=== PATIENT | male | born 1940 | race Caucasian/White ===

== ENCOUNTER 2016-11-18 19:05 | Inpatient (IN) | payer MEDICARE, OTHER ==
[~2016-11-18 19:05] MED LIST: ADULT LOW DOSE81 M1 PO; ATENOLOL50 MG; COREG6.25 MG PO; GLUCOPHAGE500 MG PO; LOTREL 10/20 MG1 CAP; LOTREL 5/20 MG1 CAP PO; MULTIVITAMIN1 CAP; NIASPAN500 M1 PO; STOOL SOFTENER100 MG; ZOCOR20 MG PO; ZOLOFT50 M1 PO
[2016-11-18] MEDS ORDERED: SIMPONI SC (19:26)
[2016-11-18] MEDS ORDERED: GLIMEPIRIDE4 M1 PO (19:26)
[2016-11-18] MEDS ORDERED: AMBIEN10 M1 PO (19:27)
[2016-11-18] MEDS ORDERED: LIPITOR10 M1 PO (19:28)
[2016-11-18] MEDS ORDERED: PROTONIX40 M2 PO (19:28)
[2016-11-18] MEDS ORDERED: MELATONIN3 M4 PO (19:28)
[2016-11-18] MEDS ORDERED: PREDNISONE10 M1 PO (19:29)
[2016-11-18 20:26] LABS: URINE APPEARANCE HAZY; URINE BILIRUBIN MODERATE (NEG); URINE BLOOD NEGATIVE (NEG); URINE COLOR DARK YELLOW; URINE GLUCOSE (UA) MODERATE (NEG); URINE KETONE MODERATE (NEG); URINE LEUKOCYTE ESTERASE POSITIVE (NEG); URINE NITRITE NEGATIVE (NEG); URINE PROTEIN MODERATE (NEG); URINE SPECIFIC GRAVITY 1.025 (1.003-1.030)
[2016-11-18 20:26] LABS: BASO % 0.1 % (0-2); HCT-HEMATOCRIT 38.6 % (36.0-53.5); HGB-HEMOGLOBIN 13.4 gm/dl (13.5-17.0); IMMATURE GRANULOCYTES PERCENT 0.5 % (0-0.3); LYMPH % 7.4 % (20-45); LYMPH ABSOLUTE COUNT 1.4 tho/cmm (0.8-4.5); MCH (MEAN CORPUSCULAR HGB) 27.4 pg (28.0-32.0); MCHC MEAN CORPUSCULAR HGB CONC 34.7 % (32.0-36.0); MCV (MEAN CELL VOLUME) 78.9 fl (82.0-96.0); MEAN PLATELET VOLUME 9.4 cmc (9.4-12.4); MONO % 6.1 % (0-12); MONOCYTE ABSOLUTE COUNT 1.1 tho/cmm (0.0-1.2); NEUTROPHIL ABSOLUTE COUNT 15.7 tho/cmm (1.6-8.0); NEUTROPHIL-AUTOMATED 15.7 tho/cmm (1.6-8.0); NEUTROPHILS % 85.9 % (40-80); PLATELET COUNT 223 tho/cmm (150-450); RED BLOOD COUNT 4.89 mil/cmm (4.40-5.70); RED CELL DISTRIBUTION WIDTH 13.8 % (12.4-16.4); WHITE BLOOD COUNT 18.3 tho/cmm (4.0-10.0)
[2016-11-18 20:37] LABS: URINE EPITHELIAL CELLS 0-1 /[HPF] (0-10); URINE MUCUS 3+
[2016-11-18 20:40] LABS: ALB/GLOB RATIO 0.6 (0.8-2.0); ALBUMIN 2.3 g/dl (3.5-5.0); ALKALINE PHOSPHATASE 87 U/L (33-138); ALT/SGPT 17 U/L (12-78); ANION GAP 20 mmol/L (0-20); AST/SGOT 11 U/L (10-40); BILIRUBIN,TOTAL 0.4 mg/dl (0.0-1.5); BLOOD UREA NITROGEN 23 mg/dl (6-24); CALCIUM 8.2 mg/dl (8.5-10.5); CARBON DIOXIDE-VENOUS 19 mmol/L (22-32); CHLORIDE 101 mmol/l (96-110); CREATININE 1.08 mg/dl (0.60-1.30); GLUCOSE 308 mg/dL (70-110); POTASSIUM 4.6 mmol/L (3.7-5.1); SODIUM 135 mmol/L (135-145); eGFR VALUE FOR BLACK 77 mL/Min
[2016-11-19 05:51] LABS: BASO % 0.2 % (0-2); EOS % 0.2 % (0-7); HCT-HEMATOCRIT 41.9 % (36.0-53.5); HGB-HEMOGLOBIN 14.1 gm/dl (13.5-17.0); IMMATURE GRANULOCYTES ABSOLUTE 0.12 tho/cmm (0-0.03); IMMATURE GRANULOCYTES PERCENT 0.7 % (0-0.3); LYMPH % 10.7 % (20-45); LYMPH ABSOLUTE COUNT 1.9 tho/cmm (0.8-4.5); MCH (MEAN CORPUSCULAR HGB) 26.7 pg (28.0-32.0); MCHC MEAN CORPUSCULAR HGB CONC 33.7 % (32.0-36.0); MCV (MEAN CELL VOLUME) 79.4 fl (82.0-96.0); MEAN PLATELET VOLUME 9.5 cmc (9.4-12.4); MONO % 8.1 % (0-12); MONOCYTE ABSOLUTE COUNT 1.4 tho/cmm (0.0-1.2); NEUTROPHIL ABSOLUTE COUNT 14.2 tho/cmm (1.6-8.0); NEUTROPHIL-AUTOMATED 14.2 tho/cmm (1.6-8.0); NEUTROPHILS % 80.1 % (40-80); PLATELET COUNT 241 tho/cmm (150-450); RED BLOOD COUNT 5.28 mil/cmm (4.40-5.70); RED CELL DISTRIBUTION WIDTH 13.8 % (12.4-16.4); WHITE BLOOD COUNT 17.7 tho/cmm (4.0-10.0)
[2016-11-19 05:53] LABS: ANION GAP 15 mmol/L (0-20); BLOOD UREA NITROGEN 16 mg/dl (6-24); CALCIUM 8.7 mg/dl (8.5-10.5); CARBON DIOXIDE-VENOUS 24 mmol/L (22-32); CHLORIDE 106 mmol/l (96-110); CREATININE 1.05 mg/dl (0.60-1.30); SODIUM 141 mmol/L (135-145); eGFR VALUE FOR BLACK 80 mL/Min
[2016-11-19 05:55] LABS: GLUCOSE 104 mg/dL (70-110)
--- NOTE | 2016-11-19 21:24 | NUR ---
VN ROUNDING-NOT ABLE TO COMPLETE THE [employer] COMPUTER SHOWS IT IS OFFLINE. UNABLE TO PLACE CALL
[2016-11-20 06:31] LABS: BASO % 0.1 % (0-2); EOS % 0.1 % (0-7); HCT-HEMATOCRIT 36.1 % (36.0-53.5); HGB-HEMOGLOBIN 12.2 gm/dl (13.5-17.0); IMMATURE GRANULOCYTES ABSOLUTE 0.06 tho/cmm (0-0.03); IMMATURE GRANULOCYTES PERCENT 0.4 % (0-0.3); LYMPH % 8.4 % (20-45); LYMPH ABSOLUTE COUNT 1.2 tho/cmm (0.8-4.5); MCH (MEAN CORPUSCULAR HGB) 26.7 pg (28.0-32.0); MCHC MEAN CORPUSCULAR HGB CONC 33.8 % (32.0-36.0); MEAN PLATELET VOLUME 9.4 cmc (9.4-12.4); MONO % 7.2 % (0-12); NEUTROPHILS % 83.8 % (40-80); PLATELET COUNT 205 tho/cmm (150-450); RED BLOOD COUNT 4.57 mil/cmm (4.40-5.70); WHITE BLOOD COUNT 14.4 tho/cmm (4.0-10.0)
--- NOTE | 2016-11-20 16:19 | NUR ---
VIRTUAL CARE NOTE: PT RESTING ON BED, STATES DOING VERY WELL TODAY. IV IS BEEPING AND PT WANTS SOME ICE AT THIS TIME, VN PAGED TO FLOOR STAFF TO ASSIST. PT DENIES FURTHER NEEDS, AWAITING FOR SURGEON TO ROUND YET.
--- NOTE | 2016-11-20 20:05 | NUR ---
TO THE O.R. VIA STAFF AND CART
[2016-11-21 06:15] LABS: BASO % 0.1 % (0-2); HCT-HEMATOCRIT 36.7 % (36.0-53.5); HGB-HEMOGLOBIN 12.2 gm/dl (13.5-17.0); IMMATURE GRANULOCYTES ABSOLUTE 0.11 tho/cmm (0-0.03); IMMATURE GRANULOCYTES PERCENT 0.5 % (0-0.3); LYMPH % 6.2 % (20-45); LYMPH ABSOLUTE COUNT 1.3 tho/cmm (0.8-4.5); MCH (MEAN CORPUSCULAR HGB) 26.3 pg (28.0-32.0); MCHC MEAN CORPUSCULAR HGB CONC 33.2 % (32.0-36.0); MCV (MEAN CELL VOLUME) 79.3 fl (82.0-96.0); MEAN PLATELET VOLUME 9.4 cmc (9.4-12.4); MONO % 6.8 % (0-12); MONOCYTE ABSOLUTE COUNT 1.5 tho/cmm (0.0-1.2); NEUTROPHIL ABSOLUTE COUNT 18.8 tho/cmm (1.6-8.0); NEUTROPHIL-AUTOMATED 18.8 tho/cmm (1.6-8.0); NEUTROPHILS % 86.4 % (40-80); PLATELET COUNT 202 tho/cmm (150-450); RED BLOOD COUNT 4.63 mil/cmm (4.40-5.70); RED CELL DISTRIBUTION WIDTH 13.9 % (12.4-16.4)
[2016-11-21 06:19] LABS: WHITE BLOOD COUNT 21.7 tho/cmm (4.0-10.0)
[2016-11-21 06:25] LABS: ANION GAP 14 mmol/L (0-20); BLOOD UREA NITROGEN 4 mg/dl (6-24); CALCIUM 7.7 mg/dl (8.5-10.5); CARBON DIOXIDE-VENOUS 22 mmol/L (22-32); CHLORIDE 105 mmol/l (96-110); CREATININE 0.84 mg/dl (0.60-1.30); GLUCOSE 171 mg/dL (70-110); POTASSIUM 3.9 mmol/L (3.7-5.1); SODIUM 137 mmol/L (135-145); eGFR VALUE FOR BLACK >90 mL/Min
--- NOTE | 2016-11-21 21:49 | NUR ---
VIRTUAL CARE NOTE: ASSESSMENT DEFERRED. PT. SLEEPING.
[2016-11-22 05:22] LABS: BASO % 0.1 % (0-2); EOS % 0.1 % (0-7); HCT-HEMATOCRIT 34.9 % (36.0-53.5); HGB-HEMOGLOBIN 11.6 gm/dl (13.5-17.0); IMMATURE GRANULOCYTES ABSOLUTE 0.09 tho/cmm (0-0.03); IMMATURE GRANULOCYTES PERCENT 0.6 % (0-0.3); LYMPH % 5.1 % (20-45); LYMPH ABSOLUTE COUNT 0.8 tho/cmm (0.8-4.5); MCH (MEAN CORPUSCULAR HGB) 26.2 pg (28.0-32.0); MCHC MEAN CORPUSCULAR HGB CONC 33.2 % (32.0-36.0); MEAN PLATELET VOLUME 9.1 cmc (9.4-12.4); MONO % 4.8 % (0-12); MONOCYTE ABSOLUTE COUNT 0.8 tho/cmm (0.0-1.2); NEUTROPHIL ABSOLUTE COUNT 14.3 tho/cmm (1.6-8.0); NEUTROPHIL-AUTOMATED 14.3 tho/cmm (1.6-8.0); NEUTROPHILS % 89.3 % (40-80); PLATELET COUNT 206 tho/cmm (150-450); RED BLOOD COUNT 4.42 mil/cmm (4.40-5.70); RED CELL DISTRIBUTION WIDTH 13.8 % (12.4-16.4)
--- NOTE | 2016-11-22 17:46 | NUR ---
VN ROUNDING-NOT ABLE TO ROUND [facility] NOT WORKING IN THIS ROOM. CHART WAS REVIEWED.
[2016-11-24] MEDS ORDERED: STOP THE FOLLOWING (09:46)
[2016-11-24] MEDS ORDERED: AUGMENTIN 875-1 EAC2 PO (09:47)
[2016-12-13] MEDS ORDERED: AMBIEN10 M1 PO (11:11)
[2016-12-13] MEDS ORDERED: AMARYL4 M1 PO (11:11)
[2016-12-13] MEDS ORDERED: PREDNISONE10 M1 PO (11:12)
[2016-12-13] MEDS ORDERED: LEVEMIR100 UNITS/ SC (11:13)
[2016-12-13] MEDS ORDERED: PROBIOTIC1 EA10 PO (11:13)
[2016-12-25] MEDS ORDERED: GUMMI BEAR MUL1 EAC1 PO (10:47)
[2016-12-25] MEDS ORDERED: VITAMIN B-125000 MC2 SL (10:49)
[2016-12-28] MEDS ORDERED: TUMS200 MG PO (08:54)
[2016-12-28] MEDS ORDERED: ACIDOPHILUS LA1 EAC1 PO (08:54)
[2016-12-28] MEDS ORDERED: AUGMENTIN 875-1 EAC2 PO (08:55)
[2016-12-28] MEDS ORDERED: PERCOCET 5-3251 EACH PO (08:56)
[2016-12-28] MEDS ORDERED: LEVAQUIN750 M1 PO (10:56)
[2016-12-28] MEDS ORDERED: PROTONIX40 M2 PO (12:13)
== END 2016-11-24 12:05 | DRG 603 ==
LOC: EDMED 19:05 → EMR2 21:35 → 5WD 23:47 → PACU 11-20 21:13 → 5WD 11-20 22:34
PROVIDERS: Colon & Rectal Surgery; Emergency Medicine; Internal Medicine; ADMIT Hospitalist
PROC: 0J9C30Z Drainage of Pelvic Region Subcutaneous Tissue and Fascia with Drainage Device, Percutaneous Approach (ICD-10-PCS; principal; 2016-11-20)
DX: L02.214 Cutaneous abscess of groin (principal); D69.6 Thrombocytopenia, unspecified; I25.10 Atherosclerotic heart disease of native coronary artery without angina pectoris; K51.90 Ulcerative colitis, unspecified, without complications; E11.9 Type 2 diabetes mellitus without complications; I10 Essential (primary) hypertension; L03.314 Cellulitis of groin; N49.2 Inflammatory disorders of scrotum; E78.5 Hyperlipidemia, unspecified; F32.9 Major depressive disorder, single episode, unspecified; Z95.1 Presence of aortocoronary bypass graft
CPT/HCPCS: C1751; J1650; J1815; J2175; J2543; J3370; J7030; J7050; J7512; Q9967

== ENCOUNTER 2016-12-14 07:47 | Inpatient (IN) | payer MEDICARE, OTHER ==
[~2016-12-14 07:47] MED LIST changes: +AMARYL4 M1 PO; +AMBIEN10 M1 PO; +AUGMENTIN 875-1 EAC2 PO; +GLIMEPIRIDE4 M1 PO; +LEVEMIR100 UNITS/ SC; +LIPITOR10 M1 PO; +MELATONIN3 M4 PO; +PREDNISONE10 M1 PO; +PROBIOTIC1 EA10 PO; +PROTONIX40 M2 PO; +SIMPONI SC; +STOP THE FOLLOWING
[2016-12-14 09:34] LABS: ANION GAP 15 mmol/L (0-20); BLOOD UREA NITROGEN 10 mg/dl (6-24); CALCIUM 8.9 mg/dl (8.5-10.5); CARBON DIOXIDE-VENOUS 22 mmol/L (22-32); CHLORIDE 107 mmol/l (96-110); GLUCOSE 95 mg/dL (70-110); POTASSIUM 4.1 mmol/L (3.7-5.1); SODIUM 140 mmol/L (135-145); eGFR VALUE FOR BLACK 84 mL/Min
--- NOTE | 2016-12-14 16:37 | NUR ---
0650-VIRTUAL NURSE NOTE-PATIENT SETTLED INTO ROOM POST OP. INTRODUCED MYSELF TO PATIENT AND FAMILY AND INSTRUCTED THEM HOW TO CONTACT US. Michelle AKBAR RN
[2016-12-15 07:24] LABS: BASO % 0.2 % (0-2); EOS % 0.2 % (0-7); HCT-HEMATOCRIT 32.6 % (36.0-53.5); HGB-HEMOGLOBIN 10.5 gm/dl (13.5-17.0); LYMPH % 14.8 % (20-45); LYMPH ABSOLUTE COUNT 1.4 tho/cmm (0.8-4.5); MCH (MEAN CORPUSCULAR HGB) 25.5 pg (28.0-32.0); MCHC MEAN CORPUSCULAR HGB CONC 32.2 % (32.0-36.0); MCV (MEAN CELL VOLUME) 79.1 fl (82.0-96.0); MEAN PLATELET VOLUME 9.6 cmc (9.4-12.4); MONO % 8.8 % (0-12); MONOCYTE ABSOLUTE COUNT 0.8 tho/cmm (0.0-1.2); NEUTROPHIL ABSOLUTE COUNT 7.2 tho/cmm (1.6-8.0); NEUTROPHIL-AUTOMATED 7.2 tho/cmm (1.6-8.0); PLATELET COUNT 203 tho/cmm (150-450); RED BLOOD COUNT 4.12 mil/cmm (4.40-5.70); RED CELL DISTRIBUTION WIDTH 14.9 % (12.4-16.4); WHITE BLOOD COUNT 9.4 tho/cmm (4.0-10.0)
[2016-12-15 07:36] LABS: ANION GAP 10 mmol/L (0-20); BLOOD UREA NITROGEN 14 mg/dl (6-24); CALCIUM 8.1 mg/dl (8.5-10.5); CARBON DIOXIDE-VENOUS 24 mmol/L (22-32); CHLORIDE 108 mmol/l (96-110); CREATININE 1.08 mg/dl (0.60-1.30); MAGNESIUM 1.9 mg/dl (1.8-2.6); POTASSIUM 4.3 mmol/L (3.7-5.1); SODIUM 138 mmol/L (135-145); eGFR VALUE FOR BLACK 77 mL/Min
[2016-12-15 07:45] LABS: GLUCOSE 167 mg/dL (70-110)
--- NOTE | 2016-12-15 19:57 | NUR ---
VIRTUAL CARE NOTE: PT. IS DOING FAIR WITH PAIN. EXPLAINS HE FEELS HIS DRAIN MAY HAVE GOTTEN PULLED WITH PRIOR X-RAY. STATES HE WANTS TO TRY SOME TYLENOL OR SOMETHING. EXPLANATION GIVEN THAT WE DIDN'T HAVE TYLENOL ORDERED ANYMORE BUT WE DID HAVE A ORAL NARCOTIC/TYLENOL MIX WE COULD TRY JUST ONE TAB TO SEE IF THAT WOULD HELP. EDUCATION PROVIDED IT MAY LESSEN THE LIQUID STOOLS HE IS HAVING ALSO WHICH HE HAS FROM THE FULL LIQUID DIET HE IS TAKING. STATES THE OSTOMY NURSE WORKED WITH HIM AND HIS ON OSTOMY CARE TODAY. STATES HE WATCHED BUT WASN'T QUITE READY TO DO THINGS YET. PRAISE GIVEN THAT HE WAS OBSERVING CARES THAT IT WOULD BE A LEARNING PROCESS WITH TIME TO ADJUST TO THE COLOSTOMY. ALSO HAS WALKED X1 TODAY. ENCOURAGED TO AMBULATE MORE THROUGHOUT THE DAY TO HELP KEEP BOWELS FUNCTIONING AND HELP WITH HEALING AND PAIN ALSO. AIDE PAGED TO ASSIST WITH WALKING WITH ABLE. INSTRUCTED PT. TO CALL FOR FUTURE NEEDS. STATES VERBAL AGREEMENT.
--- NOTE | 2016-12-16 09:42 | NUR ---
VIRTUAL CARE NOTE: PT RESTING ON BED, AT BEDSIDE. PT STATES HE'S DOING PRETTY GOOD TODAY, DIET ADVANCED TO SOFT THIS AM-TOLERAES WELL. PLAN OF CARE DISCUSSED WITH PT AND , ENCOURAGE PT AND ENGAGE ON OSTOMY LEARNING, CONTINUE WITH AMBULATION AND USING THE I.S., ALL [facility] ANSWERED TO PATIENT AND . PT WANTS TO GO FOR A WALK, [facility] PT DENIES FURTHER NEEDS OR CONCERNS.
[2016-12-17 05:23] LABS: HGB-HEMOGLOBIN 10.5 gm/dl (13.5-17.0); PLATELET COUNT 175 tho/cmm (150-450)
[2016-12-18] MEDS ORDERED: NORCO 5-325 TA1 EACH PO (13:13)
[2016-12-18] MEDS ORDERED: IBUPROFEN200 M2 PO (13:15)
[2016-12-18] MEDS ORDERED: HOLD THE FOLLOWING: (13:19)
[2016-12-25] MEDS ORDERED: GUMMI BEAR MUL1 EAC1 PO (10:47)
[2016-12-25] MEDS ORDERED: VITAMIN B-125000 MC2 SL (10:49)
[2016-12-28] MEDS ORDERED: ACIDOPHILUS LA1 EAC1 PO (08:54)
[2016-12-28] MEDS ORDERED: TUMS200 MG PO (08:54)
[2016-12-28] MEDS ORDERED: AUGMENTIN 875-1 EAC2 PO (08:55)
[2016-12-28] MEDS ORDERED: PERCOCET 5-3251 EACH PO (08:56)
[2016-12-28] MEDS ORDERED: LEVAQUIN750 M1 PO (10:56)
[2016-12-28] MEDS ORDERED: PROTONIX40 M2 PO (12:13)
== END 2016-12-18 16:27 | DRG 331 ==
LOC: SHSA 07:47 → ORW 10:37 → PACU 15:29 → 5WD 16:29
PROVIDERS: Anesthesiology; ADMIT Colon & Rectal Surgery
PROC: 0DTE4ZZ Resection of Large Intestine, Percutaneous Endoscopic Approach (ICD-10-PCS; principal; 2016-12-14)
PROC: 0DBP4ZZ Excision of Rectum, Percutaneous Endoscopic Approach (ICD-10-PCS; 2016-12-14)
PROC: 0D1B4Z4 Bypass Ileum to Cutaneous, Percutaneous Endoscopic Approach (ICD-10-PCS; 2016-12-14)
PROC: 8E0W4CZ Robotic Assisted Procedure of Trunk Region, Percutaneous Endoscopic Approach (ICD-10-PCS; 2016-12-14)
DX: K51.90 Ulcerative colitis, unspecified, without complications (principal); E11.65 Type 2 diabetes mellitus with hyperglycemia; R63.4 Abnormal weight loss; Z68.23 Body mass index [BMI] 23.0-23.9, adult; I25.10 Atherosclerotic heart disease of native coronary artery without angina pectoris; I10 Essential (primary) hypertension; K21.9 Gastro-esophageal reflux disease without esophagitis; F41.8 Other specified anxiety disorders; Z95.1 Presence of aortocoronary bypass graft; Z85.46 Personal history of malignant neoplasm of prostate; Z90.79 Acquired absence of other genital organ(s); Z79.82 Long term (current) use of aspirin; Z79.4 Long term (current) use of insulin; Z79.84 Long term (current) use of oral hypoglycemic drugs; Z79.899 Other long term (current) drug therapy
CPT/HCPCS: J0131; J1335; J1644; J1650; J1720; J1815; J2250; J3480; J7030; J7512

== ENCOUNTER 2016-12-30 11:55 | Emergency (ER) | payer MEDICARE, OTHER ==
[~2016-12-30 11:55] MED LIST changes: +ACIDOPHILUS LA1 EAC1 PO; +GUMMI BEAR MUL1 EAC1 PO; +HOLD THE FOLLOWING:; +IBUPROFEN200 M2 PO; +LEVAQUIN750 M1 PO; +NORCO 5-325 TA1 EACH PO; +PERCOCET 5-3251 EACH PO; +TUMS200 MG PO; +VITAMIN B-125000 MC2 SL
== END 2016-12-30 15:10 ==
LOC: EDMED 11:55
PROC: 09QKXZZ Repair Nasal Mucosa and Soft Tissue, External Approach (ICD-10-PCS; principal; 2016-12-30)
DX: S01.21XA Laceration without foreign body of nose, initial encounter (principal); S63.615A Unspecified sprain of left ring finger, initial encounter; S00.93XA Contusion of unspecified part of head, initial encounter; S80.212A Abrasion, left knee, initial encounter; S80.211A Abrasion, right knee, initial encounter; S50.311A Abrasion of right elbow, initial encounter; I25.10 Atherosclerotic heart disease of native coronary artery without angina pectoris; E11.9 Type 2 diabetes mellitus without complications; W01.0XXA Fall on same level from slipping, tripping and stumbling without subsequent striking against object, initial encounter; Y93.01 Activity, walking, marching and hiking; Y92.480 Sidewalk as the place of occurrence of the external cause; Y99.8 Other external cause status; Z95.1 Presence of aortocoronary bypass graft; Z87.891 Personal history of nicotine dependence; Z79.82 Long term (current) use of aspirin; Z79.899 Other long term (current) drug therapy